=== PATIENT | male | born 1985 | race Two or more races ===

== ENCOUNTER 2025-04-20 23:21 | Emergency (ER) | payer OTHER ==
[~2025-04-20] VITALS: Ht 195.6 cm; Wt 163.3 kg
[~2025-04-20 23:21] MED LIST: AMOX1TAB12 PO; GUAIFENESIN DM118 ML PO; IBUPROFEN800 MG PO; PROVENTIL3 ML/2.5 M IH
[2025-04-20 23:40] VITALS: BP 146/73; O2SAT 97
[2025-04-21] MEDS ORDERED: CLINDAMYCIN PHOSPHATE 150 MG/ML (300mg) ONE (01:18)
[2025-04-21] MEDS ORDERED: CLINDAMYCIN PHOSPHATE 150 MG/ML (600mg) IM STA (01:20)
== END 2025-04-21 01:30 | disposition home or self-care (01) ==
LOC: ER 23:21
DX: L03.115 Cellulitis of right lower limb (principal); Z91.013 Allergy to seafood